=== PATIENT | male | born 1970 | race Caucasian/White ===

== ENCOUNTER → 2023-08-14 | Outpatient (CLI) | payer OTHER, SELFPAY ==
--- NOTE | 2023-08-14 06:40 | MRI_ITS ---
STUDY: MRI RIGHT SHOULDER REASON FOR EXAM: Male, 53 years old. PAIN, ANTERIOR DISLOCATION, EFFUSION TECHNIQUE: Standardized fat and water weighted pulse sequences were obtained in all 3 orthogonal planes. COMPARISON: None. FINDINGS: Normal supraspinatus tendon. Normal infraspinatus tendon. Normal subscapularis tendon. Normal teres minor tendon. Normal supraspinatus muscle. Normal infraspinatus muscle. Normal subscapularis muscle. There is severe atrophy and fatty infiltration of the teres minor muscle. There is a Hill-Sachs deformity of the posterior superior humeral head, with underlying subcortical marrow edema. There is a fracture of the anterior-inferior glenoid with associated tear of the anterior-inferior glenoid labrum (axial PD series 2 images 11-14), compatible with a bony Bankart lesion. Normal biceps labral complex. Normal intracapsular long biceps tendon. There is mild extra-articular long biceps tenosynovitis. Normal rotator interval. There is mild acromioclavicular arthrosis. There is a Type II morphology (curved), with a neutral orientation. There is trace subacromial-subdeltoid bursal fluid. Normal visualized coracohumeral and coracoacromial ligaments. Normal quadrilateral space. Normal axillary space. Normal deltoid muscle. Normal trapezius muscle. MRI/Upper Ext Joint Only(Routine) IMPRESSION: Hill-Sachs deformity of the posterior superior humeral head, with underlying subcortical marrow edema. Fracture of the anterior-inferior glenoid with associated tear of the anterior-inferior glenoid labrum, compatible with a bony Bankart lesion. Severe atrophy and fatty infiltration of the teres minor muscle. Mild acromioclavicular arthrosis. Minimal subacromial-subdeltoid bursitis. Mild extra-articular long biceps tenosynovitis. No rotator cuff tear. Electronically Signed: Arpan Carr MD at 9:19 EST ,
== END | disposition home or self-care (01) ==
LOC: MRI 06:38
PROVIDERS: Referring Provider Physician Assistant; Visit Provider Physician Assistant
DX: S43.014D Anterior dislocation of right humerus, subsequent encounter (principal); M25.511 Pain in right shoulder; M25.411 Effusion, right shoulder; X58.XXXA Exposure to other specified factors, initial encounter
CPT/HCPCS: 73221